=== PATIENT | male | born 1960 | race Caucasian/White ===

== ENCOUNTER 2017-01-04 12:38 | Emergency (ER) | payer BC ==
[2017-01-04 13:42] VITALS: BP 119/69
--- NOTE | 2017-01-04 14:39 | UC ---
Skin Complaint HPI - HPI Summary HPI Summary: 56 year old male presents with complains of lump on left knee. - History of Current Complaint Chief Complaint: UCSkin Time Seen by Provider: 01/04/17 14:37 Stated Complaint: LUMP ON LEG - Allergy/Home Medications Allergies/Adverse Reactions: Allergies Allergy/AdvReac Type Severity Reaction Status Date / Time No Known Allergies Allergy Verified 01/04/17 13:35 Home Medications: Home Medications NK [No Home Medications Reported] 01/04/17 [History Confirmed 01/04/17] Review of Systems Constitutional: Negative Skin: Negative Eyes: Negative ENT: Negative Respiratory: Negative Cardiovascular: Negative Gastrointestinal: Negative Genitourinary: Negative Motor: Negative Neurovascular: Negative Musculoskeletal: Other: - mass on left knee Neurological: Negative Psychological: Negative All Other Systems Reviewed And Are Negative: Yes PMH/Surg Hx/FS Hx/Imm Hx Previously Healthy: Yes - Surgical History Surgical History: None - Social History Alcohol Use: Occasionally Substance Use Type: None Smoking Status (MU): Never Smoked Tobacco Physical Exam Triage Information Reviewed: Yes Vital Signs: Initial Vital Signs Temp 37.1 C 01/04/17 13:36 Pulse 87 01/04/17 13:36 Resp 16 01/04/17 13:36 BP 119/69 01/04/17 13:36 Pulse Ox 99 01/04/17 13:36 Eye Exam: Normal ENT Exam: Normal Dental Exam: Normal Neck exam: Normal Neck: Positive: 1 Respiratory Exam: Normal Cardiovascular Exam: Normal Abdominal Exam: Normal Musculoskeletal: Positive: Other: - mass on left knee Neurological Exam: Normal Psychological Exam: Normal Skin Exam: Normal Course/Dx - Diagnoses Provider Diagnoses: mass on left knee Discharge - Discharge Plan Condition: Stable Disposition: HOME Patient Education Materials: Ganglion Cysts (GEN) Referrals: Luis Suarez MD [Primary Care Provider] - Cali Castro MD [Medical Doctor] -
--- NOTE | 2017-01-04 15:10 | RAD ---
Indication: Lump lateral aspect LEFT knee. Comparison: January 13, 2009 LEFT lower leg Technique: LEFT knee: AP, tunnel, lateral, sunrise views. Report: Negative for joint effusion. Mild osteophytosis and mild to moderate medial joint space narrowing and subchondral sclerosis. Healed fracture at the proximal diaphysis of the fibula. No acute fracture or suspicious focal osseous lesion evident. Focal convexity of the skin contour adjacent to the lateral margin of the tibial plateau just above the level of the proximal tibiofibular articulation new compared with the prior exam. Underlying soft tissue density without soft tissue calcification. IMPRESSION: 1. 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 2. Soft tissue density lesion with resulting focal skin contour convexity corresponding with the region of clinical concern. Targeted ultrasound suggested to differentiate between a cyst/ganglion and a solid lesion.
== END 2017-01-04 15:19 | disposition home or self-care (01) ==
LOC: UCEAST 12:38
DX: R22.42 Localized swelling, mass and lump, left lower limb (principal)
CPT/HCPCS: 99201; G0463